=== PATIENT | female | born 1955 | race Caucasian/White ===

== ENCOUNTER → 2017-04-16 10:26 | Emergency (ER) | payer MEDICARE, BC ==
[2017-04-16 10:31] VITALS: BP 128/56
--- NOTE | 2017-04-16 11:18 | ED ---
Upper Extremity Pain - HPI Summary HPI Summary: 62 female presents with complaints of right thumb pain that began approximately 2-3 days ago. Patient was doing hard labor outside consisting of shoveling, lifting and climbing. She admits to having arthritis in the same thumb. She is right handed. IS able to move her thumb however causes pain with extension at the base of palmar side of thumb. Has tried taking aleve, ibuprofen, and tylenol without much relief. Was just seen at her primary care office and states they had to send her here to get an x-ray. Was given tramadol at primary care office. Has been wearing a brace for her arthritis but feels as thought it applies pressure to the pin point area of thumb that causes her pain. Denies numbness/tingling and trauma. No other pain in wrist/fingers. Denies swelling and bruising. No radiation - History of Current Complaint Chief Complaint: EDExtremityUpper Stated Complaint: RT WRIST PAIN Time Seen by Provider: 04/16/17 10:48 Hx Obtained From: Patient Onset/Duration: Started Days Ago Timing: Constant Severity Initially: Moderate Severity Currently: Moderate Pain Location: Finger - right thumb Character: Sharp - shooting Aggravating Factor(s): Movement, Extension Alleviating Factor(s): Rest Associated Signs & Symptoms: Positive: Negative Related History: Dominant Hand Right - Allergies/Home Medications Allergies/Adverse Reactions: Allergies Allergy/AdvReac Type Severity Reaction Status Date / Time Amoxicillin [From Augmentin] Allergy Unknown Verified 09/06/16 09:48 Reaction Details Clavulanic Acid Allergy Unknown Verified 09/06/16 09:48 [From Augmentin] Reaction Details PMH/Surg Hx/FS Hx/Imm Hx Endocrine/Hematology History: Reports: Hx Thyroid Disease - HYPO Cardiovascular History: Reports: Other Cardiovascular Problems/Disorders - HIGH CHOLESTEROL Respiratory History: Reports: Hx Asthma Denies: Other Respiratory Problems/Disorders GI History: Reports: Hx Gastroesophageal Reflux Disease Denies: Other GI Disorders Musculoskeletal History: Reports: Hx Arthritis - HANDS, Hx Tendonitis - LEFT ELBOW, OK NOW Denies: Other Musculoskeletal History Sensory History: Reports: Hx Cataracts - CATARINO, Hx Contacts or Glasses - GLASSES, Hx Hearing Aid - CATARINO Opthamlomology History: Reports: Hx Cataracts - CATARINO, Hx Contacts or Glasses - GLASSES Neurological History: Denies: Other Neuro Impairments/Disorders Psychiatric History: Reports: Hx Anxiety - ON MEDS, Hx Depression - ON MEDS - Cancer History Cancer Type, Location and Year: BLADDER CA Hx Chemotherapy: - bladder cancer - Surgical History Surgery Procedure, Year, and Place: BILAT BREAST BIOPSIES-BENIGN Hx Anesthesia Reactions: No Infectious Disease History: No Infectious Disease History: Denies: Traveled Outside the [place] in Last 30 Days - Family History Known Family History: Positive: None - Social History Alcohol Use: None Substance Use Type: Reports: None Smoking Status (MU): Former Smoker Amount Used/How Often: PACK A DAY Have You Smoked in the Last Year: No Review of Systems Constitutional: Negative Cardiovascular: Negative Respiratory: Negative Positive: Arthralgia, Myalgia - right thumb Skin: Negative Neurological: Negative All Other Systems Reviewed And Are Negative: Yes Physical Exam Triage Information Reviewed: Yes Vital Signs On Initial Exam: Initial Vitals Temp Pulse Resp BP Pulse Ox 97.5 F 72 16 128/56 100 04/16/17 10:28 04/16/17 10:28 04/16/17 10:28 04/16/17 10:28 04/16/17 10:28 Vital Signs Reviewed: Yes Appearance: Positive: Well-Appearing, No Pain Distress, Well-Nourished Skin: Positive: Warm, Skin Color Reflects Adequate Perfusion, Dry, Other - no crepitus, obvious deformity, ecchymosis or edema, or step-off noted.. Negative : Numb, Cyanosis @ Head/Face: Positive: Normal Head/Face Inspection Eyes: Positive: Normal, Conjunctiva Clear ENT: Positive: Normal ENT inspection, Hearing grossly normal Neck: Positive: Supple, Nontender Respiratory/Lung Sounds: Positive: Clear to Auscultation, Breath Sounds Present. Negative: Rales, Rhonchi, Wheezes Cardiovascular: Positive: Normal, RRR, Pulses are Symmetrical in both Upper and Lower Extremities - 2+. Negative: Murmur, Rub Musculoskeletal: Positive: Strength/ROM Intact - however causes pain in right thumb especially with extension, Pain @ - right base of thumb, palmar side, over flexor brevis and seasmoid bone, Other - de Quervain's tenosynovitis "Judit's test" negative. No nodule appreciated on palpation of tendon sheath no palmar side. possible trigger finger. Negative: Interruption @, Abnormal @, Edema Left, Edema Right Neurological: Positive: Sensory/Motor Intact - sensation intact and normal, Alert, Oriented to Person Place, Time, CN Intact II-III, Reflexes Intact, NV Bundle Intact Distally, Normal Gait Psychiatric: Positive: Normal Diagnostics - Vital Signs Vital Signs Temp Pulse Resp BP Pulse Ox 04/16/17 10:31 97.9 F 78 16 128/56 100 04/16/17 10:28 97.5 F 72 16 128/56 100 - Laboratory Lab Statement: Any lab studies that have been ordered have been reviewed, and results considered in the medical decision making process. - Radiology right thumb Xray Interpretation: No Acute Changes - No fracture of the right thumb is noted. Radiology Interpretation Completed By: Radiologist Course/Dx - Course Course Of Treatment: x-ray obtained and negative for fracture. did show arthritis. will be treated for arthritis/tendonitis. rest, laurita wrap, NSAID, heat /ice and tramadol. Patient given tramadol from PCP no additional prescription needed at this time. Follow up with PCP. Aware of worsening signs and symptoms to watch out for. - Diagnoses Provider Diagnoses: Pain of right thumb, Tendinitis of thumb Discharge - Discharge Plan Condition: Stable Disposition: HOME Patient Education Materials: Tendinitis (ED) Referrals: Marizol Westfall MD [Primary Care Provider] - Additional Instructions: Continue taking Aleve or Motrin in the morning and at bedtime. Take the tramadol for pain in between doses of aleve/motrin. Apply heat in the morning and ice at night. Try doing this multiple times daily. Rest thumb and wear laurita bandage to give support. Avoid using right hand as much as possible for the next 3-5 days or until symptoms improve. Follow up with PCP, especially if symptoms persist in case of further evaluation and imagining is needed. If symptoms worsen or new symptoms develop seek medical attention promptly.
--- NOTE | 2017-04-16 12:34 | RAD ---
Indication: Right thumb pain. 3 views of the right thumb demonstrates no fracture. No other bone or joint abnormality is identified. IMPRESSION: No fracture of the right thumb is noted.
== END | disposition home or self-care (01) ==
LOC: ED 10:26
DX: M79.644 Pain in right finger(s) (principal); M77.9 Enthesopathy, unspecified; E03.9 Hypothyroidism, unspecified; E78.00 Pure hypercholesterolemia, unspecified; J45.909 Unspecified asthma, uncomplicated; K21.9 Gastro-esophageal reflux disease without esophagitis; F41.9 Anxiety disorder, unspecified; F32.9 Major depressive disorder, single episode, unspecified; Z85.51 Personal history of malignant neoplasm of bladder; Z88.1 Allergy status to other antibiotic agents; Z87.891 Personal history of nicotine dependence
CPT/HCPCS: 99281

== ENCOUNTER 2017-08-22 09:26 | Day surgery (SDC) | payer MEDICARE, BC ==
[~2017-08-22 09:26] MED LIST: Buffered Lidocaine 0.9% SYRIN* 5 ML/SYR SYRINGE INTRADERM ONE
[2017-08-22] MEDS ORDERED: ceFAZolin 2 GM PREMIX (*) 50 ML IVPB ONE (09:42)
[2017-08-22] MEDS ORDERED: Lidocaine 2% PF * 5 ML VIAL ONE (10:08)
[2017-08-22] MEDS ORDERED: Propofol* 10 MG/ML 20 ML BTL IV PUSH ONE (10:08)
[2017-08-22] MEDS ORDERED: fentaNYL* 50 MCG/ML 2 ML VIAL (100 MCG VIAL) ONE ×2 (10:09→11:23)
[2017-08-22] MEDS ORDERED: Bupivacaine 0.25% SDV* 30 ML ONE (10:10)
[2017-08-22] MEDS ORDERED: Ketorolac INJ* 30 MG/ML 1 ML VIAL IV PRN (11:03)
[2017-08-22] MEDS ORDERED: fentaNYL* 50 MCG/ML 2 ML VIAL (100 MCG VIAL) IV PRN (11:03)
[2017-08-22] MEDS ORDERED: oxyCODONE/Acetamin 5/325 MG* TAB PO PRN (11:03)
[2017-08-22] MEDS ORDERED: HYDROcodone/ACETAMIN 5-325 MG* 1 TAB PO PRN (11:03)
[2017-08-22] MEDS ORDERED: PROCHLORPERAZINE INJ 5 MG/ML 2 ML VIAL IV PRN (11:03)
[2017-08-22] MEDS ORDERED: Ondansetron INJ* 2 MG/ML VIAL ONE (11:19)
[2017-08-22] MEDS ORDERED: Ketorolac INJ* 30 MG/ML 1 ML VIAL ONE (11:54)
[2017-08-22 12:36] VITALS: BP 111/56
[2017-08-22] MEDS ORDERED: HYDROcodone/ACETAMIN 5-325 MG* 1 TAB ONE (12:39)
--- NOTE | 2017-08-23 00:12 | OP ---
DATE OF OPERATION: 08/22/17 - [facility] DATE OF : 51 SURGEON: Zen Carpio MD CAR CLEANER: MARCK Reeves. An assistant technician was needed for the entirety of the procedure to aid in positioning of the arm and retraction. ANESTHESIOLOGIST: Dr. Chelsey Burnham. ANESTHESIA: General. PRE-OP DIAGNOSIS: Right stage III basal joint arthritis. POST-OP DIAGNOSIS: Right stage III basal joint arthritis. OPERATIVE PROCEDURE: Right thumb carpometacarpal arthroplasty with distally based split flexor carpi radialis tendon transfer for thumb suspension. INDICATIONS: Shiloh has failed nonoperative treatment. She has progressive pain related to right thumb basal joint arthritis. We talked about risks and benefits. She has elected to proceed with surgery. ESTIMATED BLOOD LOSS: 5 mL. COMPLICATIONS: None. FINDINGS: As expected. DESCRIPTION OF PROCEDURE: Chitra was seen in the preoperative holding area, and the correct side, site and procedure were identified. We came back to the operating room. Anesthesia was induced. The arm was prepped and draped in the usual fashion. A time-out was performed. The arm was exsanguinated with the Esmarch and the tourniquet inflated to 250 mmHg. I made a 2 to 3 cm longitudinal incision from the dorsal aspect of the thumb metacarpal base down towards the radial styloid. Dissection was carried down longitudinally to preserve the coursing sensory nerves. The radial artery was identified and mobilized. The venous plexus was cauterized with a Bovie. I then longitudinally split the capsule and periosteum and raised the periosteal and capsular flaps volarly and dorsally. The basal joint, the trapeziotrapezoid joint, and the scaphotrapezial joint were all identified. Soft tissue was mobilized around the trapezium. I then took the rongeur and removed the trapezium en bloc. I cleaned up some synovitis with the rongeur. I then raised the periosteum of the dorsal radial aspect of the thumb metacarpal base. I then used a 2.4 drill bit followed by 3.6 drill bit sequentially to create a drill hole from the dorsal radial aspect of the base of the metacarpal and exiting out the volar ulnar aspect of the articular surface. The wound was then copiously irrigated. I then turned my attention to the forearm. I made a 1-cm longitudinal incision directly over the FCR tendon. The sheath was opened. The tendon was brought up out of the wound. It was split longitudinally with 15 blade and a 25-gauge wire was passed between the split. I then released the sheath and the adhesions all around the tendon and made a second 1 cm transverse incision about 8 cm proximal to the first and then a third small transverse incision more proximal to that. The sheath was opened up and freed up all along the course of the FCR tendon. I then used the Macy clamp to pull the 25-gauge wire sequentially into the two more proximal wounds releasing the tendon proximally at the musculotendinous junction. The split end was then delivered into the distal wound, the muscular remnants were removed and the tail of the tendon was sewed down with some 3-0 Ethibond to prevent splitting. I then used 25-gauge wire to shuttle it down to the thumb base wound and then to bring it up into the drill hole through the base of the thumb metacarpal back around the intact limb of the FCR and then appropriate tension was set as the tendon transfer was secured with 3 [id number] 3-0 Ethibond sutures, the first grabbing all 3 limbs of the transfer, the second two grabbing intact limb to intact limb. Once the transfer was secured, I went ahead and irrigated out the wound. The remainder of the split end of the tendon was rolled up into a ball and secured with 3-0 Ethibond suture. This was docked in interposition between the base of the thumb metacarpal and the scaphoid bone. I had inspected the scaphotrapezoid joint with a freer elevator and the cartilage looked good there. The capsule was then closed with 3-0 Ethibond suture. All the wounds were infiltrated with 0.25% plain Marcaine. The skin was closed with 4-0 nylon suture. The wounds were dressed with Xeroform , 4x4's, sterile Webril, and a thumb spica splint was placed. Tourniquet was deflated and the hand pinked up immediately. She was then woken up and taken to the recovery room in stable condition. [id number]/CPS #: [id number] MTDD
== END 2017-08-22 12:59 | disposition home or self-care (01) ==
LOC: OREAST 09:26
PROVIDERS: ATTEND Orthopaedic Surgery Hand Surgery
DX: M18.11 Unilateral primary osteoarthritis of first carpometacarpal joint, right hand (principal); J44.9 Chronic obstructive pulmonary disease, unspecified; E03.9 Hypothyroidism, unspecified; G47.33 Obstructive sleep apnea (adult) (pediatric); F31.9 Bipolar disorder, unspecified; K21.9 Gastro-esophageal reflux disease without esophagitis
CPT/HCPCS: 88304; 88311; J0690; J1885; J2405; J2704; J3010

== ENCOUNTER 2018-07-09 13:36 | Emergency (ER) | payer MEDICARE, BC ==
--- OUTSIDE RECORDS SUMMARY | 2018-07-09 13:59 | XMS REPORT ---
:1955 External Reference #:[id number] Author Organization [facility] Address [address] [place] [address] [place] [address] Phone [phone] Care Team Providers Name Role Phone Marizol Westfall MD Primary Care Physician Unavailable Payers Type Date Identification Numbers Payment Provider Subscriber Medicare Primary Policy Number: [id number] Medicare Shiloh Hernandez PayID: [id number] [address] [place] [address] [facility] Part B Policy Number: [id number] [facility] Shiloh Hernandez Group Name: [id number] [address] PayID: [id number] [place] [address] Problems Date Description Provider Status Onset: 02/26/2015 Obstructive sleep apnea syndrome Brittny Rees MD Active Onset: 02/26/2015 Chronic obstructive lung disease Brittny Rees MD Active Onset: 04/28/2015 Intrinsic asthma without status Brittny Rees MD Active asthmaticus Onset: 04/28/2015 Simple chronic bronchitis Brittny Rees MD Active Onset: 12/18/2015 Bipolar disorder Varsha Dupree M.D. Active Onset: 12/18/2015 Posttraumatic stress disorder Varsha Dupree M.D. Active Onset: 12/18/2015 Pseudodementia Varsha Dupree M.D. Active Onset: 04/19/2016 Encntr screen for malignant neoplasm Brittny Rees MD Active of respiratory organs Onset: 05/10/2016 Dyspnea Brittny Rees MD Active Onset: 08/31/2016 Hypoxemia Brittny Rees MD Active Onset: 03/18/2017 Mild intermittent asthma Brittny Rees MD Active Onset: 05/20/2017 Localized, primary osteoarthritis of Zen Carpio MD Active the hand Family History Date Family Member(s) Problem(s) Comments General Heart Disease General Cancer Father due to dec. due to () - Dad had several multiple cardiac issues [place], bypass surg Father Heart Disease Mother lymphoma Mother due to Lymphoma () Siblings brother with heart disease Siblings (still living) Social History Type Date Description Comments Marital Status Lives With Occupation Retired Cigarette Use Former Cigarette Smoker ETOH Use Has consumed alcohol in the Alcohol abuse. Sober since past 2012 Recreational Drug Use Denies Drug Use Smoking Patient is a former smoker Daily Caffeine Consumes on average 2 cups of regular coffee per day Daily Caffeine Consumes on average 2 sodas per day Exercise Type/Frequency Exercises regularly Exercise Type/Frequency seeing PT 1xweek as of 04/19/16 PT 1x per week Allergies, Adverse Reactions, Alerts Date Description Reaction Status Severity Comments 02/26/2015 Augmentin active Medications Medication Date Status Form Strength Qnty SIG Indications Ordering Provider Qvar Redihaler 03/03/ Active Aerosol 80mcg/Act 31.8g 1 puff Brittny 2018 m twice daily MD Negrita Bevespi 06/03/ Active Aerosol 9-4.8mcg/ 32.1u Inhale 2 Brittny Aerosphere 2017 Act nits Puffs Twice Carlie Rees MD Qtomas 06/03/ Active Aerosol 80mcg/Act 8.7un take 1 puff Brittny 2017 its twice a day MD Negrita Montelukast 04/16/ Active 10mg 1 po q hs Unknown Sodium 2016 Levothyroxine 04/16/ Active 50mcg one a day Unknown Sodium 2016 Prevacid 04/16/ Active 30mg every day Unknown 2016 by mouth Lamotrigine 04/16/ Active Tablets 200mg take 2 Unknown 2016 tablets by mouth once a day Sertraline HCL 04/16/ Active Tablets 150mg 1 by mouth Unknown 2016 every day Proventil HFA 04/16/ Active Aerosol 108(90Bas 2 puffs by Unknown 2015 e) mouth every mcg/Act 4 hours prn Oxygen 09/08/ Active Misc 1unit please use Brittny 2015 s o2 at [facility], 1litres/min at night with cpap Ibuprofen / Active Capsules 200mg as needed Unknown 0000 Cpap / Active Device for sleep Unknown 0000 apnea Fluticasone / Active Suspension 50mcg/Act 2 sprays Unknown Propionate 0000 each nostril daily as needed Lipitor / Active Tablets 40mg 1 by mouth Unknown 0000 at bedtime Adderall 00/ Active Tablets 5mg one by Unknown 0000 mouth twice a day Seroquel / Active Tablets 300mg take 1 Unknown 0000 tablet by mouth every night Amlodipine / Active Tablets 2.5mg Take 1 Unknown Besylate 0000 Tablet By Mouth Every Day Lorazepam / Active Tablets 1mg Take 1 Unknown 0000 Tablet Twice A Day [place] 08/22/ Hx Tablets 5-325mg 30tab 1 by mouth Zen 2017 - s every 4 to , hours as 2017 needed Amphetamine 04/16/ Hx Tablet 5mg 1 tab twice Unknown Salts 2016 - daily 2016 Quetiapine 04/16/ Hx Tablet 300mg 1 tab po Unknown Fumarate 2015 - daily 2016 Fluvastatin 04/16/ Hx Tablet 40mg 1 tab po Unknown Sodium 2016 - daily 2016 Bisacodyl Ec 04/16/ Hx 5mg as directed Unknown 2015 - 2015 Vesicare 04/16/ Hx Tablets 5mg 1 by mouth Unknown 2016 - every day 2016 Spiriva 04/16/ Hx Aerosol 2.5mcg/Ac 2 puffs Unknown Respimat 2016 - t every day 2016 Zoloft 04/ Hx Tablets 150mg 1 by mouth Brittny 2015 - every day Negrita 04/16/ 2015 Zoloft 10/16/ Hx Tablets 30tab 1 by mouth Brittny 2015 - s every day Negrita, (pt did not 2015 know dose) Diazepam 10/15/ Hx 5mg as directed Unknown 2014 - 2015 Symbicort 04/28/ Hx Aerosol 80-4.5mcg 2unit 2 puff 493.10 Brittny 2015 - /Act s twice a day Negrita 06/09/ 2014 Estrace 04/27/ Hx Cream as directed Unknown 2014 - 2016 Amantadine HCL / Hx 100mg Unknown - 2015 Viibryd 00/00/ Hx 40mg Unknown 0000 - 2014 Disulfiram /00/ Hx 250mg Unknown - 2014 Lamotrigine / Hx 200mg Unknown 2014 Zetia // Hx 10mg 1 po qd Unknown - 2015 Oxybutynin /00/ Hx 5mg Unknown Chloride ER - 2014 Vitamin B-1 // Hx Unknown 2014 Magnesium /00/ Hx Unknown 2014 Fish Oil 00/ Hx Unknown 2014 Vitamin D3 / Hx 2000Iu Unknown 2014 Potassium / Hx Unknown 2014 Spiriva / Hx Capsules 18mcg 1 unit Unknown Handihaler 0000 - inhalation 2015 Symbicort 00/00/ Hx Aerosol 80-4.5mcg 2 puff Unknown 0000 - /Act twice a day 2015 Probiotic / Hx Capsules 1 by mouth Unknown 0000 - every day 2015 Calcium + D + K / Hx Tablets 750-500-4 1 po qd Unknown 0000 - 0mg-Unt-m 2016 Metamucil 00/ Hx Packet 28% 1 qd Unknown Smooth Texture 0000 - Fiber Singles 2016 Buspirone HCL / Hx Tablets 15mg take one Unknown 0000 - tablet by 03/17/ mouth twice 2017 a day Probiotic / Hx Capsules 1 by mouth Unknown 0000 - every day 2016 Symbicort /00/ Hx Aerosol 80-4.5mcg 20.4u Take 2 Brittny 0000 - /Act nits Puffs Twice Negrita, 09/23/ A Day 2016 Medications Administered in Office Medication Date Status Form Strength Qnty SIG Indications Ordering Provider Celestone 3 mg Administered Injection Zen and 3mg Raymon Carpio MD Immunizations CPT Code Status Date Vaccine Lot # [id number] Given 08/24/2016 Influenza Virus Vaccine, Quadrivalent, Split, Preservative Free Vital Signs Date Vital Result Comment 06/28/2018 Height 64.25 inches 5'4.25" Heart Rate 65 /min BP Systolic 118 mmHg BP Diastolic 60 mmHg Respiratory Rate 16 /min Body Temperature 98.1 F Pain Level 2 03/24/2018 Height 64.25 inches 5'4.25" Weight 140.00 lb Heart Rate 76 /min BP Systolic Sitting 122 mmHg BP Diastolic Sitting 76 mmHg Respiratory Rate 14 /min O2 % BldC Oximetry 97 % BMI (Body Mass Index) 23.8 kg/m2 02/24/2018 Height 64.25 inches 5'4.25" Weight 140.00 lb Heart Rate 70 /min BP Systolic Sitting 106 mmHg BP Diastolic Sitting 70 mmHg Respiratory Rate 16 /min Pain Level 0 BMI (Body Mass Index) 23.8 kg/m2 11/25/2017 Height 64.25 inches 5'4.25" Weight 140.00 lb per pt Heart Rate 68 /min reg BP Systolic Sitting 96 mmHg Lue, reg cuff BP Diastolic Sitting 80 mmHg Lue, reg cuff Respiratory Rate 16 /min Pain Level 8 right thumb BMI (Body Mass Index) 23.8 kg/m2 09/30/2017 Height 64.25 inches 5'4.25" Weight 140.00 lb BP Systolic 126 mmHg BP Diastolic 76 mmHg Respiratory Rate 18 /min Pain Level 4 BMI (Body Mass Index) 23.8 kg/m2 09/27/2017 Height 64.25 inches 5'4.25" Weight 140.38 lb with shoes Heart Rate 72 /min BP Systolic Sitting 130 mmHg LA reg cuff BP Diastolic Sitting 88 mmHg LA reg cuff BMI (Body Mass Index) 23.9 kg/m2 Ejection Fraction 55% 08/05/16 stress test 09/23/2017 Height 64.25 inches 5'4.25" Weight 142.12 lb no shoes, with coat Heart Rate 88 /min BP Systolic Sitting 126 mmHg Lue reg cuff BP Diastolic Sitting 82 mmHg Lue reg cuff Respiratory Rate 16 /min O2 % BldC Oximetry 98 % On Ra BMI (Body Mass Index) 24.2 kg/m2 09/06/2017 Height 64.25 inches 5'4.25" Weight 140.00 lb Heart Rate 76 /min BP Systolic 110 mmHg BP Diastolic 68 mmHg Body Temperature 98.8 F Pain Level 6 BMI (Body Mass Index) 23.8 kg/m2 07/26/2017 Height 64.25 inches 5'4.25" Weight 140.00 lb Heart Rate 60 /min BP Systolic 124 mmHg BP Diastolic 74 mmHg Respiratory Rate 16 /min Body Temperature 97.8 F Pain Level 6 BMI (Body Mass Index) 23.8 kg/m2 05/20/2017 Height 64.25 inches 5'4.25" Weight 140.00 lb Heart Rate 60 /min BP Systolic 120 mmHg BP Diastolic 82 mmHg Respiratory Rate 16 /min Body Temperature 97.7 F Pain Level 9 BMI (Body Mass Index) 23.8 kg/m2 03/18/2017 Height 64 inches 5'4" Weight 138.00 lb Heart Rate 81 /min BP Systolic Sitting 128 mmHg BP Diastolic Sitting 78 mmHg Respiratory Rate 16 /min O2 % BldC Oximetry 98 % BMI (Body Mass Index) 23.7 kg/m2 12/17/2016 Height 64 inches 5'4" Weight 137.75 lb w/o shoes Heart Rate 80 /min BP Systolic Sitting 140 mmHg LA reg cuff BP Diastolic Sitting 86 mmHg LA reg cuff BMI (Body Mass Index) 23.6 kg/m2 Ejection Fraction 60% - 65% echo 07/02/16 08/31/2016 Height 64 inches 5'4" Weight 130.00 lb Heart Rate 86 /min BP Systolic 118 mmHg BP Diastolic 70 mmHg Respiratory Rate 14 /min O2 % BldC Oximetry 96 % BMI (Body Mass Index) 22.3 kg/m2 06/08/2016 Height 64 inches 5'4" Weight 125.50 lb with shoes Heart Rate 88 /min BP Systolic Sitting 142 mmHg LA reg cuff BP Diastolic Sitting 76 mmHg LA reg cuff BMI (Body Mass Index) 21.5 kg/m2 05/10/2016 Height 64 inches 5'4" Weight 128.00 lb Heart Rate 76 /min BP Systolic 120 mmHg BP Diastolic 78 mmHg Respiratory Rate 14 /min O2 % BldC Oximetry 98 % BMI (Body Mass Index) 22.0 kg/m2 04/19/2016 Height 64 inches 5'4" Weight 122.00 lb Heart Rate 75 /min BP Systolic Sitting 120 mmHg BP Diastolic Sitting 66 mmHg Respiratory Rate 16 /min O2 % BldC Oximetry 98 % BMI (Body Mass Index) 20.9 kg/m2 12/18/2015 Height 64 inches 5'4" Weight 117.00 lb Heart Rate 72 /min BP Systolic Sitting 110 mmHg BP Diastolic Sitting 68 mmHg Respiratory Rate 17 /min BMI (Body Mass Index) 20.1 kg/m2 10/16/2015 Height 64 inches 5'4" Weight 131.00 lb Heart Rate 83 /min BP Systolic Sitting 122 mmHg BP Diastolic Sitting 64 mmHg Respiratory Rate 16 /min O2 % BldC Oximetry 97 % BMI (Body Mass Index) 22.5 kg/m2 06/09/2015 Height 64 inches 5'4" Weight 136.00 lb Heart Rate 84 /min BP Systolic 120 mmHg BP Diastolic 68 mmHg Respiratory Rate 14 /min O2 % BldC Oximetry 97 % BMI (Body Mass Index) 23.3 kg/m2 04/28/2015 Height 64 inches 5'4" Weight 136.00 lb Heart Rate 81 /min BP Systolic Sitting 122 mmHg BP Diastolic Sitting 54 mmHg Respiratory Rate 20 /min O2 % BldC Oximetry 97 % BMI (Body Mass Index) 23.3 kg/m2 02/26/2015 Height 64 inches 5'4" Weight 139.12 lb Heart Rate 76 /min BP Systolic Sitting 120 mmHg BP Diastolic Sitting 68 mmHg Body Temperature 99.5 F O2 % BldC Oximetry 96 % BMI (Body Mass Index) 23.9 kg/m2 Neck Circumference in inches 13 Results Test Date Test Result H/L Range Note Laboratory test 08/22/2017 Surgical Pathology SEE RESULT BELOW 1, 2 finding 1 [id number] 2 SEE RESULT BELOW Name: SHILOH HERNANDEZ : [address]: Zen Carpio MD Acct: [id number] Unit: [id number] AGE: 62 Location: [facility] Re08/22/17 SEX: F 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 PRE-OPERATIVE DIAGNOSIS Right thumb basal joint arthritis GROSS DESCRIPTION The specimen is received in formalin labeled, Right Trapezium, and consists of a 2.2 by up to 1.9 x 1.4 cm sanchez-white irregular bone fragment with scant adherent sanchez- white soft tissue. The specimen is partially surfaced by a granular to eburnated articular surface. Ladle Mechanic sections, one cassette following decalcification. MICROSCOPIC DESCRIPTION Signed (signature on file) Crista Henry MD 1633 END OF REPORT * ML=Testing performed at Main Lab DEPARTMENT OF PATHOLOGY, [address] [place] [address] Chance Khoury M.D. Director [facility] # [id number] Procedures Date CPT Code Description Status 09/27/2017 70932 EKG Tracing & Interpretation Completed 09/06/2017 35088 Short Arm Splint Application Completed 08/22/2017 22531 Tendon Transfer CMC/Hand W/O Free Graft Completed 08/22/2017 80933 Tendon Transfer CMC/Hand W/O Free Graft Completed 08/22/2017 95431 Arthroplasty Interposition Intercarpal Or Completed Carpometacarpal JTS 08/22/2017 63921 Arthroplasty Interposition Intercarpal Or Completed Carpometacarpal JTS 05/20/2017 59981 Inject/Drain Joint/Bursa Small W/O US Completed 12/17/2016 00670 EKG Tracing & Interpretation Completed 08/05/2016 79588 ECHO Stress Test Incl Perf Contiuous ekg Monitoring Completed W/Phys Superv 07/13/2016 83127 ECHO Transthoracic, Real-Time 2D With Doppler And Color Completed Flow 07/02/2016 06573 ECHO Transthoracic, Real-Time 2D With Doppler And Color Completed Flow 06/08/2016 58941 EKG Tracing & Interpretation Completed 05/05/2016 96731 Diffusing Capacity Completed 05/05/2016 35970 Pulmonary Function><Bronchodil Completed 03/17/2015 54672 Diffusing Capacity Completed 03/17/2015 46991 Plethysmography Determination Lung Volumes & Per Airway Completed Resist 03/17/2015 61031 Pulmonary Stress Test Simple Completed Encounters Type Date Location Provider CPT E/M Dx Office Visit 03/24/2018 [facility] [address] G47.33 10:30a [facility] J45.20 J43.9 Office Visit 02/24/2018 1:45p [facility] [place] [address] M18.11 C.M.A. Office Visit 11/25/2017 9:15a [facility] [place] [address] M18.11 C.M.A. Office Visit 09/27/2017 10:00a [facility] Jose Luis Catherine 38011 G47.33 Luisana Wade E78.2 Office Visit 09/23/2017 10:45a [facility] [place] [address] G47.33 [facility] J45.20 Office Visit 07/26/2017 2:45p [facility] [place] [address] M18.11 C.M.A. Office Visit 05/20/2017 2:45p [facility] [place] [address] M18.11 C.M.A. Office Visit 03/18/2017 9:15a [facility] Brittny Rees MD G9697 G47.33 [facility] J45.20 J41.0 F12.90 Office Visit 12/17/2016 10:40a [facility] Jose Luis Wade 51859 G47.33 Luisana R06.02 E78.2 R94.31 Office Visit 08/31/2016 1:30p [facility] [place] [address] G47.33 [facility] J45.20 R09.02 Office Visit 06/08/2016 9:20a [facility] Jose Luis Wade, [address]5923 G47.33 M.D. R06.02 I25.10 E78.2 R07.9 Office Visit 05/10/2016 11:45a [facility] [place] [address] J45.20 [facility] G47.33 R06.02 Office Visit 04/19/2016 10:45a [facility] [place] [address] J45.20 [facility] G47.33 Z12.2 Office Visit 12/18/2015 10:00a [facility] Varsha Dupree, [address]17 R41.3 [facility] M.D. Office Visit 10/16/2015 11:45a [facility] [place] [address] J45.20 [facility] G47.33 Office Visit 06/09/2015 10:45a [facility] [place] [address] 327.23 [facility] 493.10 491.0 496 Office Visit 04/28/2015 10:15a [facility] [place] [address] 327.23 [facility] 493.10 491.0 Office Visit 02/26/2015 1:00p [facility] [place] [address] 327.23 [facility] 496 Plan of Care Future Appointment(s):08/17/2018 1:40 pm - Lisandro Vela M.D. at [facility]/25/2018 9:15 am - Brittny Rees MD at [facility]
--- NOTE | 2018-07-09 16:53 | RAD ---
HISTORY: Right-sided calf pain TECHNIQUE: Multiple transverse and longitudinal ultrasound images were obtained of the veins of the right lower extremity using grayscale, color Doppler, and spectral Doppler imaging with and without compression and with augmentation. FINDINGS: VEINS: The common femoral vein, deep femoral vein, femoral vein and popliteal vein are compressible throughout their course, with normal flow on color Doppler imaging and normal response to augmentation on spectral Doppler imaging. SOFT TISSUES: Grossly normal. No large popliteal fossa cyst was identified. IMPRESSION: No sonographic evidence of deep vein thrombosis.
--- NOTE | 2018-07-09 17:21 | ED ---
Lower Extremity - HPI Summary HPI Summary: Pt. is a 63 y.o female who present to the ER for pain and swelling to right anterior leg x 2-3 days. Pt. does not recall a specific injury but states she does a lot of outside yard work and walking on uneven surfaces so she could have injured leg without knowing. Pain is worse with flexion and extension of ankle. Pt. initially went to and was referred to ER for venous duplex to r/o DVT. Pt. denies hx of clots, recent sx, long travels, CP or SOB. Symptoms are mild in severity. - History of Current Complaint Chief Complaint: EDExtremityLower Stated Complaint: RT LEG PAIN Time Seen by Provider: 07/09/18 15:54 Hx Obtained From: Patient Pain Intensity: 9 - Allergies/Home Medications Allergies/Adverse Reactions: Allergies Allergy/AdvReac Type Severity Reaction Status Date / Time amoxicillin [From Augmentin] Allergy Nausea And Verified 07/09/18 13:47 Vomiting clavulanic acid Allergy Nausea And Verified 07/09/18 13:47 [From Augmentin] Vomiting Home Medications: Home Medications Albuterol Sulfate [Proventil Hfa] 2 puff INH Q4H PRN 07/09/18 [History Confirmed 07/09/18] Lurasidone(*) [Latuda] 20 mg PO BEDTIME 07/09/18 [History Confirmed 07/09/18] Sertraline* [Zoloft*] 150 mg PO BEDTIME 07/09/18 [History Confirmed 07/09/18] lamoTRIgine [Lamotrigine] 400 mg PO DAILY 07/09/18 [History Confirmed 07/09/18] PMH/Surg Hx/FS Hx/Imm Hx Previously Healthy: Yes Endocrine/Hematology History: Reports: Hx Thyroid Disease - HYPO Cardiovascular History: Reports: Other Cardiovascular Problems/Disorders - HIGH CHOLESTEROL Respiratory History: Reports: Hx Asthma - exertional asthma, Hx Sleep Apnea Denies: Other Respiratory Problems/Disorders GI History: Reports: Hx Gastroesophageal Reflux Disease, Hx Irritable Bowel - constipation easier Denies: Other GI Disorders Musculoskeletal History: Reports: Hx Arthritis - HANDS, Hx Tendonitis - LEFT ELBOW, OK NOW Denies: Other Musculoskeletal History Sensory History: Reports: Hx Cataracts - [facility], Hx Contacts or Glasses - GLASSES reading, Hx Hearing Aid - [facility] Opthamlomology History: Reports: Hx Cataracts - [facility], Hx Contacts or Glasses - GLASSES reading Neurological History: Reports: Other Neuro Impairments/Disorders - mild cognitive impairment Psychiatric History: Reports: Hx Anxiety - ON MEDS- bipolar II disorder, Hx Depression - ON MEDS - Cancer History Cancer Type, Location and Year: BLADDER CA Hx Chemotherapy: - bladder cancer - Surgical History Surgery Procedure, Year, and Place: BILAT BREAST BIOPSIES-BENIGN. bladder cancer excision 2002- [place]. Broken Jaw repair . Cataract surgery with IOL bilat 2015, 2016 Hx Anesthesia Reactions: No Infectious Disease History: No Infectious Disease History: Denies: Traveled Outside the [place] in Last 30 Days - Family History Known Family History: Positive: None - Social History Occupation: Retired Lives: With Family Alcohol Use: None Substance Use Type: Reports: None Smoking Status (MU): Former Smoker Amount Used/How Often: PACK A DAY, smoked for approx 48 years Have You Smoked in the Last Year: No Review of Systems Cardiovascular: Negative Respiratory: Negative Positive: Other - Pain to right lower leg Skin: Negative Neurological: Negative All Other Systems Reviewed And Are Negative: Yes Physical Exam Triage Information Reviewed: Yes Vital Signs On Initial Exam: Initial Vitals Temp Pulse Resp BP Pulse Ox 97.8 F 62 14 129/72 100 07/09/18 13:47 07/09/18 13:47 07/09/18 13:47 07/09/18 13:47 07/09/18 13:47 Vital Signs Reviewed: Yes Appearance: Positive: Well-Appearing - Pt. sitting in chair in NAD. Reading Skin: Positive: Warm, Dry Head/Face: Positive: Normal Head/Face Inspection Eyes: Positive: Normal, EOMI Musculoskeletal: Positive: Other - Right leg is neurovascularly intact. Mild edema and pain to the distal anterior lower leg laterally to tibia. No bony tenderness. No wounds or signs of infection. No calf swelling or pain. Neurological: Positive: Normal, CN Intact II-III Psychiatric: Positive: Affect/Mood Appropriate Diagnostics - Vital Signs Vital Signs Temp Pulse Resp BP Pulse Ox 07/09/18 13:47 97.8 F 62 14 129/72 100 - Laboratory Lab Statement: Any lab studies that have been ordered have been reviewed, and results considered in the medical decision making process. Lower Extremity Course/Dx - Course Course Of Treatment: Pt. presenting for mild edema and pain to aneterior right lower leg. No signs of infection. Suspect strain/contusion. She has no bony tenderness and xray was not obtained given no hx of trauma. Did obtain u/s given pt.'s concern. U/S is negative for DVT or acute findings, per radiology. Advised pt. to ice and elevate. Activity as tolerated. Tylenol or motrin for pain as directed. To f.u with PCP if pain persist. Pt. understands and agrees with plan. - Diagnoses Differential Diagnosis/HQI/PQRI: Positive: Arthritis, Contusion, Sprain, Strain Provider Diagnoses: Muscle strain Discharge - Sign-Out/Discharge Documenting (check all that apply): Patient Departure - Discharge Plan Condition: Good Disposition: HOME Patient Education Materials: Muscle Strain (ED) Referrals: Marizol Westfall MD [Primary Care Provider] - Additional Instructions: Schedule a follow up appointment with your PCP Ice and elevate Tylenol or Motrin for pain as directed Activity as tolerated Return to ER if symptoms change or worsen - Billing Disposition and Condition Condition: GOOD Disposition: Home
[2018-07-09 17:25] VITALS: BP 140/86
== END 2018-07-09 17:24 | disposition home or self-care (01) ==
LOC: ED 13:36
DX: S86.911A Strain of unspecified muscle(s) and tendon(s) at lower leg level, right leg, initial encounter (principal); X58.XXXA Exposure to other specified factors, initial encounter; Y93.9 Activity, unspecified; Y92.9 Unspecified place or not applicable; F41.9 Anxiety disorder, unspecified; F31.9 Bipolar disorder, unspecified; Z85.51 Personal history of malignant neoplasm of bladder; Z88.1 Allergy status to other antibiotic agents; Z88.0 Allergy status to penicillin; Z87.891 Personal history of nicotine dependence
CPT/HCPCS: 99282

== ENCOUNTER 2018-09-04 07:42 | Emergency (ER) | payer MEDICARE, BC ==
[2018-09-04] MEDS ORDERED: Silver Sulfadiazine 1%* 20 GM TOPICAL ONE (08:17)
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
[2018-09-04 09:01] VITALS: BP 139/66
== END 2018-09-04 09:01 | disposition home or self-care (01) ==
LOC: ED 07:42
DX: T24.211A Burn of second degree of right thigh, initial encounter (principal); E03.9 Hypothyroidism, unspecified; E78.00 Pure hypercholesterolemia, unspecified; K21.9 Gastro-esophageal reflux disease without esophagitis; J45.909 Unspecified asthma, uncomplicated; F31.81 Bipolar II disorder; F41.9 Anxiety disorder, unspecified; X10.0XXA Contact with hot drinks, initial encounter; Y92.9 Unspecified place or not applicable; Z85.51 Personal history of malignant neoplasm of bladder
CPT/HCPCS: 99281; A9270-GY

== ENCOUNTER → 2018-09-16 13:34 | Emergency (ER) | payer MEDICARE, BC ==
[~2018-09-16 13:34] MED LIST changes: -Buffered Lidocaine 0.9% SYRIN* 5 ML/SYR SYRINGE INTRADERM ONE; +Bupivacaine 0.25% W/EPI* 50 ML VIAL INJ ONE; +Bupivacaine 0.5% W/EPI SDV* 30 ML VIAL ONE
--- NOTE | 2018-09-16 14:03 | ED ---
Throat Pain/Nasal Congestion - HPI Summary HPI Summary: This patient is a 63 year old F presenting to [facility] with a chief complaint of right, upper dental pain that began two weeks ago. The patient rates the pain 8/ 10 in severity. Symptoms aggravated by nothing. Symptoms alleviated by nothing. Patient reports painful bump under tongue. Patient states she broke her jaw approximately 20 years ago. - History of Current Complaint Chief Complaint: EDDentalPain Time Seen by Provider: 09/16/18 13:51 Hx Obtained From: Patient Onset/Duration: Sudden Onset, Lasting Weeks, Still Present Severity: Severe Cough: None - Allergies/Home Medications Allergies/Adverse Reactions: Allergies Allergy/AdvReac Type Severity Reaction Status Date / Time amoxicillin [From Augmentin] Allergy Nausea And Verified 09/16/18 13:41 Vomiting clavulanic acid Allergy Nausea And Verified 09/16/18 13:41 [From Augmentin] Vomiting PMH/Surg Hx/FS Hx/Imm Hx Previously Healthy: No Endocrine/Hematology History: Reports: Hx Thyroid Disease - HYPO Cardiovascular History: Reports: Other Cardiovascular Problems/Disorders - HIGH CHOLESTEROL Respiratory History: Reports: Hx Asthma - exertional asthma, Hx Sleep Apnea Denies: Other Respiratory Problems/Disorders GI History: Reports: Hx Gastroesophageal Reflux Disease, Hx Irritable Bowel - constipation easier Denies: Other GI Disorders Musculoskeletal History: Reports: Hx Arthritis - HANDS, Hx Tendonitis - LEFT ELBOW, OK NOW Denies: Other Musculoskeletal History Sensory History: Reports: Hx Cataracts - [facility]INO, Hx Contacts or Glasses - GLASSES reading, Hx Hearing Aid - [facility] Opthamlomology History: Reports: Hx Cataracts - CATARINO, Hx Contacts or Glasses - GLASSES reading Neurological History: Reports: Other Neuro Impairments/Disorders - mild cognitive impairment Psychiatric History: Reports: Hx Anxiety - ON MEDS- bipolar II disorder, Hx Depression - ON MEDS - Cancer History Cancer Type, Location and Year: BLADDER CA Hx Chemotherapy: - bladder cancer - Surgical History Surgery Procedure, Year, and Place: BILAT BREAST BIOPSIES-BENIGN. bladder cancer excision 2002- [place]. Broken Jaw repair . Cataract surgery with IOL bilat 2015, 2016 Hx Anesthesia Reactions: No Infectious Disease History: No Infectious Disease History: Denies: Traveled Outside the [place] in Last 30 Days - Family History Known Family History: Positive: Other - Negative breast CA - Social History Occupation: Retired Lives: With Family Alcohol Use: None Hx Substance Use: No Substance Use Type: Reports: None Hx Tobacco Use: Yes Smoking Status (MU): Former Smoker Amount Used/How Often: PACK A DAY, smoked for approx 48 years Have You Smoked in the Last Year: No Review of Systems Negative: Fever ENT: Other - Positive painful bump under tongue Positive: Dental Pain All Other Systems Reviewed And Are Negative: Yes Physical Exam - Summary Physical Exam Summary: Appearance: Well appearing, no pain distress Skin: warm, dry, reflects adequate perfusion Head/face: normal Dental: Small amount of gingival irritation above the right upper premolar Eyes: EOMI, ARMAND ENT: mucous membranes moist Neck: supple, non-tender Respiratory: CTA, breath sounds present Cardiovascular: RRR, pulses symmetrical Abdomen: non-tender, soft Bowel Sounds: present Musculoskeletal: normal, strength/ROM intact Neuro: normal, sensory motor intact, A&Ox3 Triage Information Reviewed: Yes Vital Signs On Initial Exam: Initial Vitals Temp Pulse Resp BP Pulse Ox 97.8 F 81 14 153/78 97 09/16/18 13:41 09/16/18 13:41 09/16/18 13:41 09/16/18 13:41 09/16/18 13:41 Vital Signs Reviewed: Yes Procedures - Procedure Summary Procedure Summary: Dental block procedures: The right upper dental pain was treated with an intraoral approach for an infarct inferior orbital block. 1 cc of bupivacaine 0.5% with epinephrine was used. The lowered teeth discomfort was treated with an inferior alveolar nerve block of 2 cc of 0.5% bupivacaine with epinephrine. She tolerated these procedures well without complications and pain relief was excellent. Diagnostics - Vital Signs Vital Signs Temp Pulse Resp BP Pulse Ox 09/16/18 13:41 97.8 F 81 14 153/78 97 - Laboratory Lab Statement: Any lab studies that have been ordered have been reviewed, and results considered in the medical decision making process. EENT Course/Dx - Course Course Of Treatment: Dental block performed with resolution of discomfort -- start Clinda, tx pain. Refer to dental. - Diagnoses Provider Diagnoses: Pain, dental, Infected dental carries Discharge - Sign-Out/Discharge Documenting (check all that apply): Patient Departure - Discharge home - Discharge Plan Condition: Improved Disposition: HOME Prescriptions: Clindamycin Cap(NF) [Clindamycin Cap 300 mg Cap(NF)] 300 mg PO Q6H #40 cap Naproxen [Naproxen 500 mg tab] 500 mg PO BID PRN #12 tablet. PRDonny Reason: Pain Patient Education Materials: Clindamycin (By mouth), Naproxen (By mouth), Toothache (ED) Referrals: Marizol Westfall MD [Primary Care Provider] - 3 Days Additional Instructions: Follow up with your dentist on 09/18/2018. Return to the emergency department for new or worsening symptoms. - Billing Disposition and Condition Condition: IMPROVED Disposition: Home - Attestation Statements Document Initiated by Scribe: Yes Documenting Scribe: Alexandria Hodge Provider For Whom Scribe is Documenting (Include Credential): Dr. Shane Chu MD Scribe Attestation: IAlexandria scribed for Dr. Shane Chu MD on 09/16/18 at 1502. Scribe Documentation Reviewed: Yes Provider Attestation: The documentation as recorded by the Alexandria youngblood accurately reflects the service I personally performed and the decisions made by me, Dr. Shane Chu MD
[2018-09-16 14:17] VITALS: BP 145/78
--- OUTSIDE RECORDS SUMMARY | 2018-09-16 14:28 | XMS REPORT ---
:1955 External Reference #:[id number] Author Organization [facility] Address [address] [place] [address] Phone [phone] Care Team Providers Name Role Phone Marizol Westfall M.D. Care Team Information Tool Smith Unavailable Marizol Westfall M.D. Primary Care Physician Unavailable Payers Type Date Identification Numbers Payment Provider Subscriber Medicare Primary Effective: Policy Number: [employer] [place] Shiloh Dewey 2015 [id number] PayID: [id number] [address] [place] [address] Medigap Part B Effective: Policy Number: [facility] Shiloh Dewey 1996 [id number] PayID: [id number] [address] [address] [place] [address] Problems Date Description Provider Status Onset: 09/17/2014 Hypothyroidism Marizol Westfall M.D. Active Onset: 09/17/2014 Hyperlipidemia Marizol Westfall M.D. Active Onset: 09/17/2014 Moderate recurrent major depression Mairzol Westfall M.D. Active Onset: 09/17/2014 Anxiety Marizol Westfall M.D. Active Onset: 09/17/2014 Bipolar disorder Marizol Westfall M.D. Active Onset: 09/17/2014 Chronic obstructive lung disease Marizol Westfall M.D. Active Onset: 09/17/2014 Obstructive sleep apnea syndrome Marizol Westfall M.D. Active Onset: 09/17/2014 Cancer in situ of urinary bladder Marizol Westfall M.D. Active Onset: 09/17/2014 Minimal cognitive impairment Marizol Westfall M.D. Active Onset: 09/17/2014 Nondependent alcohol abuse in remission Marizol Westfall M.D. Active Onset: 10/13/2015 Gastroesophageal reflux disease Marizol Westfall M.D. Active Onset: 02/09/2018 Essential hypertension Marizol Westfall M.D. Active Onset: 08/14/2016 Mixed hyperlipidemia Marizol Westfall M.D. Active Onset: 01/20/2016 Chronic alcoholism in remission Marizol Westfall M.D. 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 Cigarette Use Former Cigarette Smoker 1 x 40 years; quit 2013 Pack Daily ETOH Use former alcoholic currently sober since 2011; on AA, hard liquor Smoking Patient is a former smoker Recreational Drug Use Denies Drug Use Daily Caffeine Consumes on average 2 cups of coffee per day Daily Caffeine Consumes on average 1 soda per day Exercise Type/Frequency Exercises regularly walks Seat Belt/Car Seat Always uses seat belt Allergies, Adverse Reactions, Alerts Date Description Reaction Status Severity Comments 09/17/2014 Augmentin severe vomiting/diarrhea active Medications Medication Date Status Form Strength Qnty SIG Indications Ordering Provider Percocet 09/06 Active Tablets 5-325mg 60tab 1 by mouth T24.211D Rebeka Suzette s every 6 hours Solis, as needed MARKETING INFORMATION COORDINATOR pain; may fill w/ generic Shingrix 08/16 Active Suspension 50mcg 1unit 1 vaccine Z23 Rebeka Rec s administered Solis, intramuscular MARKETING INFORMATION COORDINATOR Qvar 02/13 Active Aerosol 80mcg/Act 31.8g 1 puff twice Marizol Redihaler m a day Luisana Westfall Amlodipine 12/22 Active Tablets 2.5mg 30tab Take 1 Tablet Marizol Bes s By Mouth Khoi, Every Day M.DRomie Singulair 09/15 Active Tablets 10mg 90tab Take 1 Tablet J44.9 s By Mouth Khoi, Every Day MRomieDRomie Lipitor 01/12 Active Tablets 40mg 90tab Take 1 Tablet s By Mouth Khoi, Every Day M.DRomie Zoloft 09/26 Active Tablets 100mg 30tab 1 and 1/2 by F31.81 Crista /2015 s mouth every Floresita, day 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 R11.0 Lamictal Active Tablets 200mg 2 po qhs F31.81 Unknown Amphetamine-Dextroa Active Caps ER 24HR 5mg 1/2 po bid G31.84 Unknown mphet ER F31.81 Bevespi Active Aerosol 9-4.8mcg/Act 2 puff twice Unknown Aerosphere a day Seroquel Active Tablets 300mg 1 tab every Unknown night Lorazepam Active Tablets 0.5mg 1 by mouth Unknown twice a day as needed anxiety Proventil HFA Active Aerosol 108(90Base) 1 Inhale 2 Marizol mcg/Act 3 Puffs By Kirklin, . Mouth Every M.D. 4 4 To 6 Hours u n i t s Flonase Allergy Active Suspension 50mcg/Act 1 spray to Unknown Relief each nostril every day Latuda Active Tablets 20mg 1 po qd Unknown after dinner Levothyroxine Active Tablets 50mcg 9 Take 1 E03. Marizol Sodium 0 Tablet By 9 Kirklin, t Mouth Every M.D. a Day b s Qvar 02/09/2018 Hx Aerosol 80mcg/Act 8 1 puff bid Marizol - . Kirklin, 02/13/2018 7 M.D. 0 0 g m Acetaminophen-Co 08/15/2017 Hx Tablets 300-30mg 1 1 tab by Marizol garcias #3 - 2 mouth every Kirklin, 11/01/2017 0 6 hours as M.D. t needed a b s Tramadol HCL 04/16/2017 Hx Tablets 50mg 6 Take 1 M25. Marizol - 0 Tablet By 541 Kirklin, 08/15/2017 t Mouth Every M.D. a 8 Hours as b Needed For s Pain Fluvastatin 08/14/2016 Hx Capsules 40mg 3 Take One F31. Marizol Sodium - 0 Capsule By 81 Kirklin, 01/12/2017 c Mouth Every M.D. a Day p s Physical Therapy 04/10/2016 Hx evaluate and M77. Sloane - treat left 12 Brown, MARKETING INFORMATION COORDINATOR 05/31/2016 lateral epicondyliti s Physical Therapy 01/27/2016 Hx evaluation Marizol - and Kirklin, 05/31/2016 treatment of M.D. right shoulder pain Mupirocin 11/28/2015 Hx Ointment 2% 3 apply S60. Francie - 0 topically 519A Dennis, 01/20/2016 g three times DEBT AND BUDGET COUNSELOR m a day to affected area(s) Percocet 11/28/2015 Hx Tablets 5-325mg 4 1 po q 4-6h S60. Francie - 5 for hand 519A Dennis, 01/20/2016 t pain DEBT AND BUDGET COUNSELOR a b s Vesicare 09/26/2015 Hx Tablets 5mg 3 1 by mouth R32 Crista - 0 every day [facility], 05/10/2017 t DEBT AND BUDGET COUNSELOR a b s Seroquel 09/26/2015 Hx Tablets 100mg 1every night F31. Crista - at bedtime 81 Floresita, 01/20/2016 as needed DEBT AND BUDGET COUNSELOR Cyclobenzaprine 09/26/2015 Hx Tablets 5mg 3 one to two M79. Crista HCL - 0 tablet every 644 [facility], 12/08/[address] [facility] a bedtime as b needed s Ketoconazole 07/22/2015 Hx Cream 2% 3 Apply To B36. Marizol - 0 Affected 0 Kirklin, 12/08/2015 u Area Twice A M.D. n Day i t s Oxybutynin 12/24/2014 Hx Tablets ER 5mg 3 Take 1 788. Marizol Chloride ER - 24HR 0 Tablet By 30 , 09/26/2015 t Mouth Every M.D. a Day b s Estrace 09/17/2014 Hx Cream 0.1mg/GM 4 Apply To N95. Marizol - 2 Affected 2 , 04/16/2017 . Area Every M.D. 5 Day u n i t s Singulair 09/17/2014 Hx Tablet 10mg 9 take 1 J44. Marizol - 0 tablet by 9 , 09/15/2017 t mouth at M.D. a bedtime b s Seroquel Hx Tablets 300mg 3 1 by mouth 296. Unknown - 0 every night 89 09/26/2015 t at bedtime a b s Adderall XR Hx Caps ER 20mg 3 1 po q am G31. Unknown - 24HR 0 84 05/31/2016 c a p s Lamictal Hx Tablets 200mg 2 po q am 296. Unknown - 89 09/26/2015 Antabuse Hx Tablets 250mg 1/2 po q am 305. Unknown - 03 09/26/2015 Viibryd Hx Tablets 40mg 1 po q am 296. Unknown - 89 09/26/2015 Valium Hx Tablets 2mg 1 1 po tid F31. Unknown - 5 81 01/20/2016 t a b s Amantadine HCL Hx Tablets 100mg 9 1 po bid 331. Unknown - 0 83 12/08/2015 t a b s Levothyroxine Hx Tablets 100mcg 9 1 po q week 244. Unknown Sodium - 0 9 12/08/2015 t a b s Progesterone Hx Capsules 100mg 9 1 po qd Unknown Micronized - 0 04/17/2015 c a p s Esterified Hx Tablets 0.625-1.25mg 3 1 by mouth V49. Marizol Estrogens/Methyl - 0 every day 81 Kirklin, testosterone hs 04/17/2015 t Luisana arrington s Vitamin D3 Hx Capsules 2000Unit 8 1 po qd Unknown - c 12/08/2015 a p s Vitamin B-1 Hx Tablets 100mg 3 1 by mouth Unknown - 0 every day 07/09/2015 t a b s Magnesium Hx Tablets 250mg 9 1 by mouth Unknown - 0 every day 07/09/2015 t a b s Potassium Hx Tablets 595mg 1 po qd Unknown Gluconate - 07/09/2015 Calcium 500 + D Hx Tablets 229-717pm-Xpf 1 po qd Unknown - t 12/08/2015 Fish Oil Hx Capsules 1 by mouth Unknown - every day 07/09/2015 Stool Softener Hx Capsules 1 po qd Unknown - 08/14/2016 Proventil HFA Hx Aerosol 108(90Base) 1 Inhale 2 496 Marizol - mcg/Act 3 Puffs By Kirklin, 12/08/2015 . Mouth Every M.D. 4 4 To 6 Hours u n i t s Symbicort Hx Aerosol 80-4.5mcg/Act 2 puff twice Unknown - a day 08/08/2017 Zetia Hx Tablets 10mg 9 Take 1 E78. Marizol - 0 Tablet By 4 Kirklin, 08/14/2016 t Mouth Every M.D. a Day b s Z13.220 Quetiapine - Hx Tablets 100mg 2 po qhs F31.81 Unknown Fumarate 05/10/2017 Diazepam - Hx Tablets 10mg 1 by mouth Unknown 05/31/2016 three times a day Glucosamine - Hx Capsules 2 po with Unknown Chondroitin 05/31/2016 meal Metamucil - Hx Capsules 0.52gm 1 po qd Unknown 04/16/2017 Probiotic - Hx Capsules 1 by mouth Unknown 05/31/2016 every day Fluvastatin - Hx Capsules 20mg 30cap Take One F31.81 Marizol Sodium 08/14/2016 s Capsule By Kirklin, Mouth Every M.D. Day Spiriva - Hx Capsules 18mcg 30cap Inhale The J44.9 Marizol Handihaler 08/08/2017 s Contents Of Kirklin, One Capsule M.D. Every Day Breo Ellipta - Hx Aerosol 2 puff bid Unknown 11/01/2017 Qvar - Hx Aerosol 1 puff bid Unknown 02/09/2018 Immunizations CPT Code Status Date Vaccine Lot # [id number] Given 08/16/2018 Pneumococcal Conjugate Vacc-13 [id number] Given 08/16/2018 High-Dose, Influenza Virus Vacccine-fluzone 65 and [id number] older [id number] Given 08/08/2017 Influenza Vac, Quadrivalent, Slit Virus, Im [id number] 91896 Given 08/14/2016 Influenza Vac, Quadrivalent, Slit Virus, Im [id number] Given 06/28/2016 Tdap Tetanus, W Pertussis [id number] 73664 Given 09/26/2015 Influenza Vac, Quadrivalent, Slit Virus, Im [id number] Given 09/17/2014 Pneumococcal Immunization [id number] Given 09/17/2014 DO Not Use Split Influenza Virus Vaccine [id number] Vital Signs Date Vital Result Comment 09/06/2018 BP Systolic 122 mmHg BP Diastolic 60 mmHg Heart Rate 78 /min Body Temperature 97.9 F Respiratory Rate 16 /min Weight 141.38 lb 08/16/2018 BP Systolic 120 mmHg BP Diastolic 70 mmHg Heart Rate 78 /min Body Temperature 97.2 F Respiratory Rate 18 /min Weight 141.00 lb 02/09/2018 BP Systolic 98 mmHg BP Diastolic 56 mmHg Heart Rate 76 /min Respiratory Rate 16 /min Height 64.25 inches 5'4.25" Weight 143.00 lb BMI (Body Mass Index) 24.4 kg/m2 11/01/2017 BP Systolic 148 mmHg BP Diastolic 100 mmHg Heart Rate 68 /min Body Temperature 98.0 F Respiratory Rate 18 /min Height 64.25 inches 5'4.25" Weight 142.00 lb BMI (Body Mass Index) 24.2 kg/m2 08/08/2017 BP Systolic 142 mmHg BP Diastolic 90 mmHg Heart Rate 68 /min Body Temperature 98.2 F Height 64.25 inches 5'4.25" Weight 142.00 lb BMI (Body Mass Index) 24.2 kg/m2 05/05/2017 BP Systolic 128 mmHg BP Diastolic 70 mmHg Heart Rate 78 /min Body Temperature 98.1 F Height 64.25 inches 5'4.25" Weight 140.12 lb BMI (Body Mass Index) 23.9 kg/m2 04/16/2017 BP Systolic 120 mmHg BP Diastolic 70 mmHg Heart Rate 68 /min Body Temperature 98.2 F Respiratory Rate 18 /min Height 64.25 inches 5'4.25" Weight 139.00 lb BMI (Body Mass Index) 23.7 kg/m2 08/14/2016 BP Systolic 110 mmHg BP Diastolic 60 mmHg Heart Rate 72 /min Body Temperature 97.9 F Respiratory Rate 16 /min Height 64.25 inches 5'4.25" Weight 131.00 lb BMI (Body Mass Index) 22.3 kg/m2 06/28/2016 BP Systolic 122 mmHg BP Diastolic 74 mmHg Heart Rate 84 /min Body Temperature 98.6 F Height 64.5 inches 5'4.50" Weight 127.25 lb BMI (Body Mass Index) 21.5 kg/m2 05/31/2016 BP Systolic 128 mmHg BP Diastolic 62 mmHg Heart Rate 60 /min Body Temperature 98.6 F Height 64.5 inches 5'4.50" Weight 122.25 lb BMI (Body Mass Index) 20.7 kg/m2 04/10/2016 BP Systolic 130 mmHg BP Diastolic 60 mmHg Heart Rate 64 /min Body Temperature 97.8 F Respiratory Rate 16 /min Height 64 inches 5'4" Weight 123.00 lb BMI (Body Mass Index) 21.1 kg/m2 01/20/2016 BP Systolic 130 mmHg BP Diastolic 70 mmHg Heart Rate 76 /min Body Temperature 97.2 F Respiratory Rate 12 /min Height 64 inches 5'4" Weight 122.00 lb BMI (Body Mass Index) 20.9 kg/m2 12/08/2015 BP Systolic 146 mmHg BP Diastolic 92 mmHg Heart Rate 72 /min Body Temperature 97.9 F Respiratory Rate 16 /min Height 64 inches 5'4" Weight 122.38 lb BMI (Body Mass Index) 21.0 kg/m2 11/28/2015 BP Systolic 110 mmHg BP Diastolic 70 mmHg Heart Rate 76 /min Body Temperature 98.1 F Respiratory Rate 18 /min Height 64 inches 5'4" Weight 123.00 lb BMI (Body Mass Index) 21.1 kg/m2 09/26/2015 BP Systolic 126 mmHg BP Diastolic 80 mmHg Heart Rate 58 /min Body Temperature 98.3 F Respiratory Rate 18 /min Height 64 inches 5'4" Weight 131.00 lb BMI (Body Mass Index) 22.5 kg/m2 07/22/2015 BP Systolic 118 mmHg BP Diastolic 70 mmHg Heart Rate 72 /min Body Temperature 97.4 F Respiratory Rate 20 /min Height 64 inches 5'4" Weight 138.00 lb BMI (Body Mass Index) 23.7 kg/m2 05/29/2015 BP Systolic 130 mmHg BP Diastolic 82 mmHg Heart Rate 78 /min Body Temperature 97.2 F Respiratory Rate 18 /min Height 64 inches 5'4" Weight 138.00 lb BMI (Body Mass Index) 23.7 kg/m2 04/17/2015 BP Systolic 128 mmHg BP Diastolic 80 mmHg Heart Rate 78 /min Body Temperature 97.9 F Respiratory Rate 18 /min Height 64 inches 5'4" Weight 138.00 lb BMI (Body Mass Index) 23.7 kg/m2 12/24/2014 BP Systolic 130 mmHg BP Diastolic 80 mmHg Heart Rate 76 /min Body Temperature 97.4 F Respiratory Rate 20 /min Height 64 inches 5'4" Weight 144.00 lb BMI (Body Mass Index) 24.7 kg/m2 09/17/2014 BP Systolic 110 mmHg BP Diastolic 76 mmHg Heart Rate 72 /min Body Temperature 98.1 F Respiratory Rate 16 /min Height 64 inches 5'4" Weight 141.00 lb BMI (Body Mass Index) 24.2 kg/m2 Results Test Date Test Result H/L Range Note CBC Electronic Fma 08/16/2018 WBC 5.7 x10^3/UL 4.0-10.0 RBC 4.59 x10^6/UL 3.93-6.00 HGB 14.1 g/dL 12.0-17.0 HCT 42 % 35-50 MCV 90.6 fL 80.0-95.0 MCH 30.7 pg 25.6-32.2 MCHC 33.9 g/dL 32.2-36.0 RDW-CV 12.4 % 11.6-14.4 PLT 229 x10^3/UL 163-400 MPV 11.2 fL 9.4-12.4 Maddi# 3.25 x10^3/UL 1.56-6.13 Lymph# 1.71 x10^3/UL 1.18-3.74 Traverse# 0.58 x10^3/UL 0.24-0.82 Eos # 0.1 x10^3/UL 0.0-0.5 Baso # 0.06 x10^3/UL 0.01-0.08 Maddi% 56.8 % 34.0-70.0 Lymph % 29.9 % 20.0-52.0 Traverse% 10.2 % 5.0-12.0 Eos% 1.8 % 0.7-7.0 Baso% 1.1 % 0.1-1.2 Laboratory test finding 08/16/2018 CK 467 U/L High 26-140 Comprehensive Metabolic Prof 08/16/2018 Sodium 135 mEq/L 134-149 Potassium 3.9 mEq/L 3.6-5.5 Chloride 101 mEq/L 94-112 Carbon Dioxide 25 mEq/L 21-32 Glucose 92 mg/dL 70-105 BUN 14 mg/dL 6-26 Creatinine 0.9 mg/dL 0.6-1.4 BUN/Creat Ratio 15.6 CALC 8.0-36.0 Calcium 9.9 mg/dL 8.6-10.2 Total Protein 7.2 g/dL 6.4-8.3 Albumin 4.6 g/dL 3.8-5.5 Globulin 2.6 g/dL 2.0-4.8 A/G Ratio 1.8 CALC 0.6-2.3 Alk. Phosphatase 102 U/L 30-110 Alt (SGPT) 25 U/L 7-35 Ast (Sgot) 33 U/L 5-34 Total Bilirubin 0.3 mg/dL 0.2-1.3 GFR Non- >60 ml/min/1.73m^ >=60 GFR >60 ml/min/1.73m^ >=60 Lipid Profile 08/16/2018 Cholesterol 214 mg/dL High 120-200 Triglycerides 112 mg/dL 30-200 HDL Cholesterol 92 mg/dL High 30-85 LDL (Calculated) 100 CALC 0-129 VLDL Cholesterol 22 mg/dL 0-50 HDL Risk Factor 2.3 CALC 0.0-4.4 Laboratory test finding 08/16/2018 Free T4 1.11 ng/dL 0.75-1.54 TSH 2.03 mIU/L 0.50-6.00 Lyme, Western Blot, Serum 08/16/2018 IgG P93 Ab. Absent 1 IgG P66 Ab. Absent 1 IgG P58 Ab. Absent 1 IgG P45 Ab. Absent 1 IgG P41 Ab. Absent 1 IgG P39 Ab. Absent 1 IgG P30 Ab. Absent 1 IgG P28 Ab. Absent 1 IgG P23 Ab. Absent 1 IgG P18 Ab. Absent 1 Lyme IgG WB Interp. Negative 1, 2 IgM P41 Ab. Absent 1 IgM P39 Ab. Absent 1 IgM P23 Ab. Absent 1 Lyme IgM WB Interp. Negative 1, 3 Laboratory test finding 01/30/2018 TSH 2.58 mIU/L 0.50-6.00 Free T4 0.84 ng/dL 0.75-1.54 Lipid Profile 01/30/2018 Cholesterol 237 mg/dL High 120-200 Triglycerides 67 mg/dL 30-200 HDL Cholesterol 104 mg/dL High 30-85 4 LDL (Calculated) 120 CALC 0-129 VLDL Cholesterol 13 mg/dL 0-50 HDL Risk Factor 2.3 CALC 0.0-4.4 Comprehensive Metabolic Prof 01/30/2018 Sodium 142 mEq/L 134-149 Potassium 4.2 mEq/L 3.6-5.5 Chloride 105 mEq/L 94-112 Carbon Dioxide 26 mEq/L 21-32 Glucose 105 mg/dL 70-105 BUN 18 mg/dL 6-26 Creatinine 1.0 mg/dL 0.6-1.4 BUN/Creat Ratio 18.0 CALC 8.0-36.0 Calcium 10.2 mg/dL 8.6-10.2 Total Protein 7.0 g/dL 6.4-8.3 Albumin 4.8 g/dL 3.8-5.5 Globulin 2.2 g/dL 2.0-4.8 A/G Ratio 2.2 CALC 0.6-2.3 Alk. Phosphatase 104 U/L 30-110 Alt (SGPT) 23 U/L 7-35 Ast (Sgot) 28 U/L 5-34 Total Bilirubin 0.4 mg/dL 0.2-1.3 GFR Non- 59 ml/min/1.73m^ Low >=60 GFR >60 ml/min/1.73m^ >=60 CBC [facility] 01/30/2018 WBC 4.8 x10^3/UL 4.0-10.0 RBC 4.46 x10^6/UL 3.93-6.00 HGB 13.6 g/dL 12.0-17.0 HCT 40 % 35-50 MCV 90.6 fL 80.0-95.0 MCH 30.5 pg 25.6-32.2 MCHC 33.7 g/dL 32.2-36.0 RDW-CV 12.4 % 11.6-14.4 PLT 218 x10^3/UL 163-400 MPV 10.5 fL 9.4-12.4 Maddi# 2.49 x10^3/UL 1.56-6.13 Lymph# 1.49 x10^3/UL 1.18-3.74 Traverse# 0.60 x10^3/UL 0.24-0.82 Eos # 0.2 x10^3/UL 0.0-0.5 Baso # 0.05 x10^3/UL 0.01-0.08 Maddi% 51.7 % 34.0-70.0 Lymph % 30.8 % 20.0-52.0 Traverse% 12.4 % High 5.0-12.0 Eos% 3.9 % 0.7-7.0 Baso% 1.0 % 0.1-1.2 Laboratory test finding 01/30/2018 CK 340 U/L High 26-140 5 Comprehensive Metabolic Prof 04/16/2017 Sodium 142 mEq/L 134-149 Potassium 4.2 mEq/L 3.6-5.5 Chloride 102 mEq/L 94-112 Carbon Dioxide 28 mEq/L 21-32 Glucose 104 mg/dL 70-105 BUN 24 mg/dL 6-26 Creatinine 0.8 mg/dL 0.6-1.4 BUN/Creat Ratio 30.0 CALC 8.0-36.0 Calcium 9.8 mg/dL 8.6-10.2 Total Protein 7.4 g/dL 6.4-8.3 Albumin 4.6 g/dL 3.8-5.5 Globulin 2.8 g/dL 2.0-4.8 A/G Ratio 1.6 CALC 0.6-2.3 Alk. Phosphatase 106 U/L 30-110 Alt (SGPT) 25 U/L 7-35 Ast (Sgot) 24 U/L 5-34 Total Bilirubin 0.2 mg/dL 0.2-1.3 GFR Non- >60 ml/min/1.73m^ >=60 GFR >60 ml/min/1.73m^ >=60 Lipid Profile 04/16/2017 Cholesterol 211 mg/dL High 120-200 Triglycerides 81 mg/dL 30-200 HDL Cholesterol 77 mg/dL 30-85 LDL (Calculated) 118 CALC 0-129 VLDL Cholesterol 16 mg/dL 0-50 HDL Risk Factor 2.7 CALC 0.0-4.4 Laboratory test finding 04/16/2017 TSH 2.14 mIU/L 0.50-6.00 Free T4 0.69 ng/dL Low 0.75-1.54 6 CBC Electronic (Fma) 04/16/2017 WBC 5.7 3.6-9.6 RBC 4.56 3.90-5.70 Hemoglobin (Fma/CMC/CTX) 14.1 g/dL 12.1 - 17.2 Hematocrit (Fma/CMC/CTX) 41.5 % 36.1 - 50.3 Platelets 270 10^3/ul 150-400 Lymph% 32.7 % 17.0-48.0 Mixed% 5.3 Neutrophils % 62.0 Mean Corpuscular Vol 91 82.2-97.4 Mean Corpuscular Hemoglobin 31.0 27.6-33.3 Mean Corpuscular Hemo Concen 34.1 32.0-36.0 RDW 13.8 High 11.6-13.7 Mean Platelet Volume 7.9 5.5-11.0 Comprehensive Metabolic Prof 01/05/2017 Sodium 139 mEq/L 134-149 Potassium 4.7 mEq/L 3.6-5.5 Chloride 104 mEq/L 94-112 Carbon Dioxide 32 mEq/L 21-32 Glucose 91 mg/dL 70-105 BUN 18 mg/dL 6-26 Creatinine 0.9 mg/dL 0.6-1.4 BUN/Creat Ratio 20.0 CALC 8.0-36.0 Calcium 10.0 mg/dL 8.6-10.2 Total Protein 7.3 g/dL 6.4-8.3 Albumin 5.0 g/dL 3.8-5.5 Globulin 2.3 g/dL 2.0-4.8 A/G Ratio 2.2 CALC 0.6-2.3 Alk. Phosphatase 101 U/L 30-110 Alt (SGPT) 22 U/L 7-35 Ast (Sgot) 25 U/L 5-34 Total Bilirubin 0.3 mg/dL 0.2-1.3 GFR Non- >60 ml/min/1.73m^ >=60 GFR >60 ml/min/1.73m^ >=60 Lipid Profile 01/05/2017 Cholesterol 335 mg/dL High 120-200 Triglycerides 147 mg/dL 30-200 HDL Cholesterol 81 mg/dL 30-85 LDL (Calculated) 225 CALC High 0-129 VLDL Cholesterol 29 mg/dL 0-50 HDL Risk Factor 4.1 CALC 0.0-4.4 Laboratory test finding 01/05/2017 TSH 4.35 mIU/L 0.50-6.00 Free T4 0.83 ng/dL 0.75-1.54 Ua - Non Micro (Fma) 06/28/2016 Appearance clear Color yellow Glucose, Urine (Fma/CMC/CTX) neg Bilirubin neg Ketones neg SP Grav 1.015 Blood neg PH 5.5 Protein neg Urobil 0.2 Nitrite neg Leukocytes (Fma/CMC/Centrex) neg Pap HPV High Risk 06/28/2016 Diagn See Comment: 7 Adeq See Comment: 8 [email or web address] See Comment: 9 Perfor See Comment: 10 Comm . Note See Comment: 11 Iglbp See Comment: 12 HPV, high-risk Negative Negative 13 Laboratory test finding 06/28/2016 PDF [id number] SEE IMAGE Laboratory test finding 05/31/2016 Lipase, Serum 42 U/L 0-59 14 Laboratory test finding 05/31/2016 Hemoglobin A1c (Fma) 5.2 % % 4.1-5.7 Laboratory test finding 05/31/2016 Amylase, Serum 67 U/L 20-105 TSH 2.34 mIU/L 0.50-6.00 Free T4 0.95 ng/dL 0.75-1.54 Complete Blood Count 05/31/2016 WBC 4.5 x10^3/UL 3.6-9.6 RBC 4.82 x10^6/UL 3.90-5.70 HGB 14.9 g/dL 12.1-17.2 HCT 44 % 36-50 MCV 91.0 fL 82.2-97.4 MCH 30.9 pg 27.6-33.3 MCHC 33.8 g/dL 33.0-35.5 RDW 14.1 % High 11.6-13.7 PLT 241 x10^3/UL 150-400 MPV 7.9 fL 7.4-10.4 Gran # 2.7 x10^3/UL 1.5-7.2 Lymph# 1.6 x10^3/UL 0.7-4.9 Traverse# 0.2 x10^3/UL 0.1-0.9 Gran % 57.1 % 42.2-75.2 Lymph % 36.8 % 20.5-51.1 Traverse% 6.1 % 1.7-9.3 Laboratory test finding 05/31/2016 Vitamin B-12 831 pg/mL 230-1050 Folate Level >20.00 ng/mL High 3.00-16.00 Lipid Profile 05/31/2016 Cholesterol 256 mg/dL High 120-200 Triglycerides 77 mg/dL 30-200 HDL Cholesterol 94 mg/dL High 30-85 15 LDL (Calculated) 147 CALC High 0-129 VLDL Cholesterol 15 mg/dL 0-50 HDL Risk Factor 2.7 CALC 0.0-4.4 Comprehensive Metabolic Prof 05/31/2016 Sodium 140 mEq/L 134-149 Potassium 4.4 mEq/L 3.6-5.5 Chloride 106 mEq/L 94-112 Carbon Dioxide 26 mEq/L 21-32 Glucose 97 mg/dL 70-105 BUN 17 mg/dL 6-26 Creatinine 0.9 mg/dL 0.6-1.4 BUN/Creat Ratio 18.9 CALC 8.0-36.0 Calcium 10.2 mg/dL 8.6-10.2 Total Protein 7.8 g/dL 6.4-8.3 Albumin 5.2 g/dL 3.8-5.5 Globulin 2.6 g/dL 2.0-4.8 A/G Ratio 2.0 CALC 0.6-2.3 Alk. Phosphatase 112 U/L High 30-110 16 Alt (SGPT) 32 U/L 7-35 Ast (Sgot) 40 U/L High 5-34 17 Total Bilirubin 0.4 mg/dL 0.2-1.3 GFR Non- >60 ml/min/1.73m^ >=60 GFR >60 ml/min/1.73m^ >=60 Lipid Profile 04/04/2015 Cholesterol 195 mg/dL 120-200 Triglycerides 70 mg/dL 30-200 HDL Cholesterol 76 mg/dL 30-85 LDL (Calculated) 105 CALC 0-129 VLDL Cholesterol 14 mg/dL 0-50 HDL Risk Factor 2.6 CALC 0.0-4.4 Comprehensive Metabolic Prof 04/04/2015 Sodium 139 mEq/L 134-149 Potassium 4.1 mEq/L 3.6-5.5 Chloride 100 mEq/L 94-112 Carbon Dioxide 23 mEq/L 21-32 Glucose 90 mg/dL 70-105 BUN 17 mg/dL 6-26 Creatinine 1.0 mg/dL 0.6-1.4 BUN/Creat Ratio 17.0 CALC 8.0-36.0 Calcium 9.7 mg/dL 8.6-10.2 Total Protein 7.4 g/dL 6.4-8.3 Albumin 4.7 g/dL 3.8-5.5 Globulin 2.7 g/dL 2.0-4.8 A/G Ratio 1.7 CALC 0.6-2.3 Alk. Phosphatase 101 U/L 30-110 Alt (SGPT) 59 U/L High 7-35 18 Ast (Sgot) 34 U/L 5-34 Total Bilirubin 0.4 mg/dL 0.2-1.3 Complete Blood Count 04/04/2015 WBC 5.0 x10^3/UL 3.6-9.6 RBC 4.56 x10^6/UL 3.90-5.70 HGB 14.6 g/dL 12.1-17.2 HCT 43 % 36-50 MCV 94.0 fL 82.2-97.4 MCH 32.0 pg 27.6-33.3 MCHC 34.2 g/dL 33.0-35.5 RDW 12.6 % 11.6-13.7 PLT 214 x10^3/UL 150-400 MPV 8.0 fL 7.4-10.4 Gran # 3.1 x10^3/UL 1.5-7.2 Lymph# 1.7 x10^3/UL 0.7-4.9 Traverse# 0.2 x10^3/UL 0.1-0.9 Gran % 59.6 % 42.2-75.2 Lymph % 34.4 % 20.5-51.1 Traverse% 6.0 % 1.7-9.3 Laboratory test finding 04/04/2015 TSH 1.87 mIU/L 0.50-6.00 Free T4 1.05 ng/dL 0.75-1.54 1 1 sst 2 Positive: 5 of the following Borrelia-specific bands: 18,23,28,30,39,41,45,58, 66, and 93. Negative: No bands or banding patterns which do not meet positive criteria. 3 Note: An equivocal or positive EIA result followed by a negative Western Blot result is considered NEGATIVE. An equivocal or positive EIA result followed by a positive Western Blot is considered POSITIVE by the CDC. Positive: 2 of the following bands: 23,39 or 41 Negative: No bands or banding patterns which do not meet positive criteria. Criteria for positivity are those recommended by CDC/ASTPHLD. p23=Osp C, d35=hrvrawbud Note: Sera from individuals with the following may cross react in the L[place] Western Blot assays: other spirochetal diseases (periodontal disease, leptospirosis, relapsing fever, yaws, and pinta); connective autoimmune (Rheumatoid Arthritis and Systemic Lupus Erythematosus and also individuals with Antinuclear Antibody); other infections ([place] Spotted Fever; Evert-Hardin Virus, and Cytomegalovirus). 4 RESULTS VERIFIED BY REPEAT ANALYSIS 5 RESULTS VERIFIED BY REPEAT ANALYSIS 6 RESULTS VERIFIED BY REPEAT ANALYSIS 7 NEGATIVE FOR INTRAEPITHELIAL LESION AND MALIGNANCY. 8 Satisfactory for evaluation. Endocervical and/or squamous metaplastic cells (endocervical component) are present. 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 It is not a diagnostic procedure and should not be used as the sole means of detecting cervical cancer. Both false-positive and false-negative reports do occur. 12 This liquid based ThinPrep(R) pap test was screened with the use of an image guided system. 13 This high-risk HPV test detects thirteen high-risk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
== END | disposition home or self-care (01) ==
LOC: ED 13:34
DX: K04.7 Periapical abscess without sinus (principal); K02.9 Dental caries, unspecified; F41.9 Anxiety disorder, unspecified; F31.9 Bipolar disorder, unspecified; Z88.1 Allergy status to other antibiotic agents; Z88.0 Allergy status to penicillin; Z87.891 Personal history of nicotine dependence
CPT/HCPCS: 99282

== ENCOUNTER 2023-11-29 07:56 | Observation (INO) ==
[~2023-11-29 07:56] MED LIST changes: +Buffered Lidocaine 1% SYRIN 1 ml INTRADERM ONE; -Bupivacaine 0.25% W/EPI* 50 ML VIAL INJ ONE; -Bupivacaine 0.5% W/EPI SDV* 30 ML VIAL ONE; +Famotidine IV 10 MG/ML 2 ml VIAL (20 mg) IV ONE; +Lactated Ringers 1000 ml BAG 1,000 ML IV SCH
[2023-11-29] MEDS ORDERED: Clindamycin 900 MG/50 **NS BAG 900 MG/50 ML BAG ONE (08:16)
[2023-11-29] MEDS ORDERED: Famotidine IV 10 MG/ML 2 ml VIAL (20 mg) ONE (08:17)
[2023-11-29] MEDS ORDERED: Buffered Lidocaine 1% SYRIN 1 ml ONE (08:17)
[2023-11-29 08:42] LABS: Rapid COVID-19 Molecular Undetected (Undetected)
[2023-11-29] MEDS ORDERED: Bupivacaine 0.5% SDV PF 30ML VIAL ONE (09:43)
[2023-11-29] MEDS ORDERED: Lidocaine 1% w EPI 1:200,000 SDV 30 ML VIAL ONE (09:43)
[2023-11-29] MEDS ORDERED: fentaNYL 100 mcg/2 ml 50 MCG/ML VIAL ONE ×2 (09:44→12:54)
[2023-11-29] MEDS ORDERED: Midazolam 2 mg/2 ml VIAL 1 mg/ml 2 ml VIAL (2 mg) ONE (09:45)
[2023-11-29] MEDS ORDERED: HYDROmorphone 0.5 MG/0.5 ML SYRINGE ONE (10:47)
[2023-11-29] MEDS ORDERED: Ropivacaine (OR use only) 2 MG/ML 10 ML ONE (11:09)
[2023-11-29] MEDS ORDERED: Rocuronium 50 mg VIAL 10 mg/ml 5 ml VIAL (50 mg) ONE (11:09)
[2023-11-29] MEDS ORDERED: HYDROmorphone 1 MG/1 ML SYRINGE IV PRN (11:54)
[2023-11-29] MEDS ORDERED: Naloxone 0.4 mg VIAL 0.4 mg/ml 1 ml VIAL IV PRN (11:54)
[2023-11-29] MEDS ORDERED: Albuterol HFA INHALER 8 gm MDI INH PRN (12:53)
[2023-11-29] MEDS ORDERED: Naloxone Nasal Spray 4 MG/0.1 ML NASAL.SPR INTRANASAL PRN (12:53)
[2023-11-29] MEDS ORDERED: Fluticasone NASAL SPRAY 50MCG 16 gm SPRAY BTL INTRANASAL PRN (12:53)
[2023-11-29] MEDS: fentaNYL 100 mcg/2 ml 50 MCG/ML VIAL IV PRN ×4 (12:55→13:11)
[2023-11-29] MEDS ORDERED: HYDROmorphone 0.5 MG/0.5 ML SYRINGE IV SLOW PU PRN (12:58)
[2023-11-29] MEDS ORDERED: HYDROmorphone 1 MG/1 ML SYRINGE IV SLOW PU PRN (12:58)
[2023-11-29] MEDS ORDERED: Acetaminophen IV 1 GM/100ML 1,000 MG/100 ML BAG IV SCH (13:00)
[2023-11-29] MEDS ORDERED: Ondansetron 4 mg VIAL 2 MG/ML 2 ml VIAL IV PRN (13:06)
[2023-11-29] MEDS ORDERED: HYDROmorphone 1 MG/1 ML SYRINGE ONE (13:25)
[2023-11-29] MEDS: Lactated Ringers 1000 ml BAG 1,000 ML IV SCH (15:43)
[2023-11-29] MEDS: Acetaminophen IV 1 GM/100ML 1,000 MG/100 ML BAG IV SCH (17:08)
[2023-11-29] MEDS ORDERED: Propofol 10 MG/ML 20 ML BTL ONE (18:05)
[2023-11-29] MEDS ORDERED: Dexamethasone IV 4 MG/ML VIAL 1 ml VIAL ONE (18:05)
[2023-11-29] MEDS ORDERED: Ondansetron 4 mg VIAL 2 MG/ML 2 ml VIAL ONE (18:05)
[2023-11-29] MEDS ORDERED: Lidocaine 2% PF 5 ML VIAL ONE (18:11)
[2023-11-29] MEDS: Amphetamine/Dextroam ER 10(NF) 10 mg CAP.ER PO SCH (19:35)
[2023-11-29] MEDS ORDERED: AMPHETAMINE PO SCH (21:00)
[2023-11-29] MEDS ORDERED: DEXTROAM PO SCH (21:00)
[2023-11-30] MEDS: Acetaminophen IV 1 GM/100ML 1,000 MG/100 ML BAG IV SCH ×2 (02:01→08:48)
[2023-11-30] MEDS: Amphetamine/Dextroam ER 10(NF) 10 mg CAP.ER PO SCH ×2 (04:04→12:42)
[2023-11-30] MEDS: Lactated Ringers 1000 ml BAG 1,000 ML IV SCH (05:42)
[2023-11-30] MEDS ORDERED: DULoxetine DR 60 mg CAP PO SCH (09:00)
[2023-11-30] MEDS ORDERED: Tiotropium Brom/Olodaterol MDI (ACUTE) INH SCH (09:00)
[2023-11-30 10:49] VITALS: BP 144/81
[2023-11-30] MEDS ORDERED: Amphetamine/Dextroam ER 10(NF) 10 mg CAP.ER PO SCH (12:38)
== END 2023-11-30 14:00 | disposition home or self-care (01) ==
LOC: SSU 07:56 → OR 07:56
PROVIDERS: ADMIT Surgery; ATTEND Surgery